=== PATIENT | male | born 1955 | race Two or more races ===

== ENCOUNTER 2021-04-13 05:26 | Day surgery (SDC) | payer OTHER ==
[~2021-04-13 05:26] MED LIST: NORVASC2.5 MG PO
== END 2021-04-13 14:20 | disposition home or self-care (01) ==
LOC: CIR.AMB 05:26
PROVIDERS: ATTEND Specialist
DX: K40.90 Unilateral inguinal hernia, without obstruction or gangrene, not specified as recurrent (principal)

== ENCOUNTER 2023-03-28 07:24 | Day surgery (SDC) | payer OTHER ==
[2023-03-22 09:07] LABS: HEMATOCRIT 45.8 % (39.0-48.0); HEMOGLOBIN 15.8 g/dL (13-16.00); MEAN CELL VOLUME 94.7 fL (80.0-100.00); MEAN CORPUSCULAR HEMOGLOBIN 32.7 pg (27.00-32.0); MEAN CORPUSCULAR HGB CONC 34.6 g/dl (32.0-36.0); RED BLOOD COUNT 4.83 M/uL (4.00-6.00); RED CELL DISTRIBUTION WIDTH 13.6 % (11.5-14.5)
[2023-03-22 09:08] LABS: URINE APPEARANCE Clear; URINE BILIRRUBIN Negative (NEGATIVE); URINE BLOOD Negative; URINE COLOR Yellow; URINE GLUCOSE Negative (NEGATIVE); URINE LEUKOCYTE Negative; URINE NITRATE Negative; URINE PROTEIN Negative (NEGATIVE); URINE UROBILINOGEN 0.2 E.U./dl
[2023-03-22 09:09] LABS: PLATELET COUNT 115 K/uL (150-450)
[2023-03-22 09:13] LABS: URINE RBC 2.4 uL (0.0-20.8); URINE WBC 1.8 uL (0.0-23.2)
[2023-03-22 09:28] LABS: URINE BACTERIA 2.5 uL (0.0-1933)
[2023-03-22 09:56] LABS: INR 1.09; PARTIAL THROMBOPLASTIN TIME 27.1 SECONDS (22.0-34.0); PROTHROMBIN TIME 11.4 SECONDS (9.0-11.5)
[2023-03-22 10:05] LABS: ALBUMIN 3.7 gm/dL (3.4-5.0); BILIRUBIN TOTAL 0.74 mg/dL (0.3-1.2); CREATININE SERUM 0.78 mg/dL (0.70-1.30); GFR 99.28; GLOBULINA 3.5 G/DL (2.4-3.5); POTASSIUM 4.26 mEq/L (3.5-5.1); TOTAL PROTEIN 7.2 gm/dL (6.4-8.2)
[~2023-03-28 07:24] MED LIST changes: +CARVEDILOL6.25 MG; +GLUMETZA500 MG PO
== END 2023-03-28 14:35 | disposition home or self-care (01) ==
LOC: CIR.AMB 07:24
PROVIDERS: ATTEND Specialist
DX: L72.0 Epidermal cyst (principal); I10 Essential (primary) hypertension; E11.9 Type 2 diabetes mellitus without complications; Z20.822 Contact with and (suspected) exposure to COVID-19